=== PATIENT | male | born 1975 | race Caucasian/White ===

== ENCOUNTER 2025-01-05 18:42 | Inpatient (IN) | payer OTHER, MEDICAID ==
[~2025-01-05] VITALS: Ht 157.5 cm; Wt 88.5 kg
[2025-01-05] MEDS ORDERED: DOCUSATE SODIUM 100MG CAPSULE PO PRN (20:45)
[2025-01-05] MEDS ORDERED: SENNOSIDES 8.6MG TABLET PO PRN (20:45)
[2025-01-05] MEDS: LEVETIRACETAM 500MG PREMIX 100 ML IV SCH (21:39)
[2025-01-05] MEDS: LISINOPRIL 5MG TABLET PO SCH (21:39)
[2025-01-05] MEDS: ATORVASTATIN CALCIUM 40MG TABLET PO SCH (21:39)
[2025-01-05] MEDS: SODIUM CHLORIDE 0.9% 1,000 ML IV SCH (21:40)
[2025-01-05] MEDS: HYDRALAZINE HCL 25MG TABLET PO SCH (22:00)
[2025-01-05 22:37] VITALS: BP 113/70; PULSE 71; RESP 18; TEMP 36.6
[2025-01-05] MEDS: LORAZEPAM 1MG TABLET PO PRN (23:37)
[2025-01-06] VITALS: BP 116/70; PULSE 72; RESP 18; TEMP 36.4; O2SAT 95
[2025-01-06 04:00] VITALS: BP 116/70; PULSE 72; RESP 18; TEMP 36.4; O2SAT 95
[2025-01-06 07:33] LABS: BASOPHILS % 0.6 % (0.0-2.0); EOSINOPHILS % 2.1 % (0.0-5.0); HEMATOCRIT. 41.8 % (42.0-52.0); HEMOGLOBIN. 13.6 g/dL (14.0-18.0); LYMPHOCYTES % 19.2 % (20.0-50.0); MEAN CORPUSCULAR HEMOGLOBIN 27.7 pg (28.0-32.0); MEAN CORPUSCULAR HGB CONC 32.5 g/dL (31.0-37.0); MEAN CORPUSCULAR VOLUME 85.1 fL (80.0-94.0); MEAN PLATELET VOLUME 8.2 fl (7.4-10.4); MONOCYTES % 8.1 % (2.0-8.0); PLATELET 296 x1000/uL (130-400); RED BLOOD CELL COUNT 4.91 mill/uL (4.7-6.1); RED CELL DISTRIBUTION WIDTH 15.6 % (11.6-14.6); WHITE BLOOD COUNT 8.1 x1000/uL (4.5-11.0)
[2025-01-06 07:40] LABS: CHLORIDE 108 mEq/L (98-107); POTASSIUM 4.1 mEq/L (3.5-5.1); SODIUM 141 mEq/L (136-145)
[2025-01-06 08:00] VITALS: BP 122/73; PULSE 74; RESP 19; TEMP 36.2; O2SAT 96
[2025-01-06 08:30] LABS: UREA NITROGEN BLOOD 11 mg/dL (9-23)
[2025-01-06 08:32] LABS: BILIRUBIN TOTAL 0.4 mg/dL (0.1-1.0); PROTEIN TOTAL 6.8 g/dL (6.0-8.3)
[2025-01-06 08:40] LABS: CARBON DIOXIDE 25 mEq/L (21-32)
[2025-01-06 08:41] LABS: ALANINE AMINOTRANSFERASE 22 IU/L (10-49); ALBUMIN 3.8 g/dL (3.2-4.8); ASPARTATE AMINOTRANSFERASE 19 IU/L (<34); CALCIUM 9.1 mg/dL (8.7-10.4); CREATININE 0.5 mg/dL (0.6-1.3); GLUCOSE 84 mg/dL (70-105)
[2025-01-06] MEDS: PANTOPRAZOLE 40MG DR TABLET PO SCH (08:41)
[2025-01-06] MEDS: AMLODIPINE 10MG TABLET PO SCH (09:15)
[2025-01-06 20:00] VITALS: BP 115/68; PULSE 65; RESP 18; TEMP 36.4; O2SAT 96
[2025-01-07] MEDS: ACETAMINOPHEN 500MG TABLET PO SCH (00:06)
[2025-01-07 08:00] VITALS: BP 127/75; PULSE 72; RESP 19; TEMP 36.2; O2SAT 96
[2025-01-07 08:21] LABS: BASOPHILS % 0.6 % (0.0-2.0); EOSINOPHILS % 1.6 % (0.0-5.0); HEMATOCRIT. 40.8 % (42.0-52.0); HEMOGLOBIN. 13.4 g/dL (14.0-18.0); LYMPHOCYTES % 15.6 % (20.0-50.0); MEAN CORPUSCULAR HEMOGLOBIN 27.2 pg (28.0-32.0); MEAN CORPUSCULAR HGB CONC 32.8 g/dL (31.0-37.0); MEAN CORPUSCULAR VOLUME 82.9 fL (80.0-94.0); MEAN PLATELET VOLUME 8.5 fl (7.4-10.4); MONOCYTES % 6.1 % (2.0-8.0); NEUTROPHILS % 76.1 % (40.0-76.0); PLATELET 307 x1000/uL (130-400); RED BLOOD CELL COUNT 4.92 mill/uL (4.7-6.1); RED CELL DISTRIBUTION WIDTH 15.1 % (11.6-14.6); WHITE BLOOD COUNT 8.8 x1000/uL (4.5-11.0)
[2025-01-07 08:29] LABS: AMMONIA 25 uMol/L (<32)
[2025-01-07 08:36] LABS: CARBON DIOXIDE 26 mEq/L (21-32); CHLORIDE 108 mEq/L (98-107); SODIUM 140 mEq/L (136-145)
[2025-01-07 08:37] LABS: CALCIUM 8.6 mg/dL (8.7-10.4)
[2025-01-07 08:41] LABS: CREATININE 0.6 mg/dL (0.6-1.3); IRON 85 ug/dL (65-175)
[2025-01-07 08:42] LABS: GLUCOSE 83 mg/dL (70-105); UREA NITROGEN BLOOD 10 mg/dL (9-23)
[2025-01-07 08:43] LABS: ALANINE AMINOTRANSFERASE 31 IU/L (10-49)
[2025-01-07 08:44] LABS: ALBUMIN 3.8 g/dL (3.2-4.8); ASPARTATE AMINOTRANSFERASE 24 IU/L (<34); BILIRUBIN TOTAL 0.4 mg/dL (0.1-1.0); TOTAL IRON BINDING CAPACITY 311 ug/dl (250-425)
[2025-01-07 08:45] LABS: T4 FREE 1.16 ng/dL (0.89-1.76); THYROID STIMULATING HORMONE 2.29 uIU/mL (0.55-4.78)
[2025-01-07 08:46] LABS: FOLIC ACID (FOLATE) SERUM 12.87 ng/mL (>5.38); VITAMIN B12 SERUM 612 pg/mL (211-911)
[2025-01-07 20:00] VITALS: BP 112/69; PULSE 68; RESP 18; TEMP 36.4; O2SAT 98
[2025-01-08 08:00] VITALS: BP 128/81; PULSE 82; RESP 18; TEMP 36.7; O2SAT 97
[2025-01-08] MEDS: POLYVINYL ALCOHOL OPHTH DROPS 15ML BOTHEYE PRN (18:31)
[2025-01-08 20:00] VITALS: BP 122/61; PULSE 68; RESP 19; TEMP 36.7; O2SAT 96
[2025-01-09 08:00] VITALS: BP 111/62; PULSE 90; RESP 18; TEMP 36.8; O2SAT 98
[2025-01-09] MEDS: LEVETIRACETAM 500MG TABLET PO SCH (09:46)
[2025-01-09 14:00] VITALS: BP 104/72
[2025-01-09 20:00] VITALS: BP 121/74; PULSE 70; RESP 20; TEMP 36.6; O2SAT 98
[2025-01-10 08:00] VITALS: BP 119/80; PULSE 67; RESP 18; TEMP 36.9; O2SAT 97
[2025-01-10] MEDS: NICOTINE 14MG PATCH TD SCH (19:15)
[2025-01-10] MEDS: ERGOCALCIFEROL 50000UNITS CAPSULE PO SCH (19:15)
[2025-01-10 20:00] VITALS: BP 110/58; PULSE 65; RESP 18; TEMP 36.4; O2SAT 98
[2025-01-10] MEDS: LORAZEPAM 1MG TABLET PO PRN (22:23)
[2025-01-11 08:00] VITALS: BP 131/79; PULSE 69; RESP 16; TEMP 36.9; O2SAT 98
[2025-01-11 20:00] VITALS: BP 116/67; PULSE 62; RESP 19; TEMP 36.5; O2SAT 98
[2025-01-12 08:00] VITALS: BP 109/73; PULSE 80; RESP 20; TEMP 36.6; O2SAT 97
[2025-01-12 20:00] VITALS: BP 108/72; PULSE 71; RESP 18; TEMP 36.6; O2SAT 97
[2025-01-12] MEDS: ATORVASTATIN CALCIUM 20MG TABLET PO SCH (22:39)
[2025-01-13 08:00] VITALS: BP 127/82; PULSE 89; RESP 18; TEMP 36.5; O2SAT 100
[2025-01-13 20:00] VITALS: BP 114/70; PULSE 70; RESP 18; TEMP 36.6; O2SAT 97
[2025-01-14 08:00] VITALS: BP 94/70; PULSE 85; RESP 18; TEMP 36.2; O2SAT 96
[2025-01-14] MEDS: FOLIC ACID 1MG TABLET PO SCH (08:46)
[2025-01-14] MEDS: THIAMINE HCL 100MG TABLET PO SCH (08:46)
[2025-01-14 20:00] VITALS: BP 114/72; PULSE 81; RESP 20; TEMP 36.5; O2SAT 95
[2025-01-15 08:00] VITALS: BP 120/75; PULSE 72; RESP 20; TEMP 36.3; O2SAT 96
[2025-01-15 20:00] VITALS: BP 124/76; PULSE 68; RESP 19; TEMP 36.4; O2SAT 98
[2025-01-16 08:00] VITALS: BP 103/63; PULSE 70; RESP 18; TEMP 36.9; O2SAT 97
[2025-01-16 20:00] VITALS: BP 133/85; PULSE 71; RESP 18; TEMP 36.6; O2SAT 98
[2025-01-17 06:39] LABS: BASOPHILS % 0.4 % (0.0-2.0); EOSINOPHILS % 2.4 % (0.0-5.0); HEMOGLOBIN. 13.5 g/dL (14.0-18.0); LYMPHOCYTES % 19.7 % (20.0-50.0); MEAN CORPUSCULAR HEMOGLOBIN 28.5 pg (28.0-32.0); MEAN CORPUSCULAR HGB CONC 33.7 g/dL (31.0-37.0); MEAN CORPUSCULAR VOLUME 84.5 fL (80.0-94.0); MEAN PLATELET VOLUME 8.5 fl (7.4-10.4); MONOCYTES % 7.7 % (2.0-8.0); NEUTROPHILS % 69.8 % (40.0-76.0); PLATELET 278 x1000/uL (130-400); RED BLOOD CELL COUNT 4.74 mill/uL (4.7-6.1); RED CELL DISTRIBUTION WIDTH 15.5 % (11.6-14.6); WHITE BLOOD COUNT 9.3 x1000/uL (4.5-11.0)
[2025-01-17 06:48] LABS: CHLORIDE 104 mEq/L (98-107); POTASSIUM 3.9 mEq/L (3.5-5.1); SODIUM 140 mEq/L (136-145)
[2025-01-17 06:49] LABS: CALCIUM 9.5 mg/dL (8.7-10.4); CARBON DIOXIDE 28 mEq/L (21-32)
[2025-01-17 06:54] LABS: CREATININE 0.7 mg/dL (0.6-1.3); GLUCOSE 90 mg/dL (70-105); UREA NITROGEN BLOOD 12 mg/dL (9-23)
[2025-01-17 06:56] LABS: ALANINE AMINOTRANSFERASE 42 IU/L (10-49); ALBUMIN 3.8 g/dL (3.2-4.8); ASPARTATE AMINOTRANSFERASE 23 IU/L (<34)
[2025-01-17 06:57] LABS: BILIRUBIN TOTAL 0.4 mg/dL (0.1-1.0); PROTEIN TOTAL 6.7 g/dL (6.0-8.3)
[2025-01-17 08:00] VITALS: BP 132/74; PULSE 69; RESP 20; TEMP 36.3; O2SAT 97
[2025-01-17 20:00] VITALS: BP 109/63; PULSE 75; RESP 16; TEMP 36.7; O2SAT 98
[2025-01-18 08:00] VITALS: BP 124/68; PULSE 72; RESP 18; TEMP 36.3; O2SAT 100
[2025-01-18 20:00] VITALS: BP 114/67; PULSE 73; RESP 18; TEMP 36.6; O2SAT 97
[2025-01-19 08:00] VITALS: BP 121/82; PULSE 82; RESP 20; TEMP 36.3; O2SAT 98
[2025-01-19 20:00] VITALS: BP 111/74; PULSE 80; RESP 19; TEMP 36.8; O2SAT 94
[2025-01-20 08:00] VITALS: BP 99/59; PULSE 79; RESP 18; TEMP 36.6; O2SAT 97
[2025-01-20 20:00] VITALS: BP 101/58; PULSE 78; RESP 19; TEMP 36.7; O2SAT 96
[2025-01-20] MEDS: ATORVASTATIN CALCIUM 40MG TABLET PO SCH (21:28)
[2025-01-20 22:23] VITALS: BP 101/58; PULSE 78; RESP 20; TEMP 36.7; O2SAT 96
[2025-01-21 08:00] VITALS: BP 114/69; PULSE 64; RESP 18; TEMP 36.2; O2SAT 96
[2025-01-21 20:00] VITALS: BP 109/62; PULSE 75; RESP 20; TEMP 36.7; O2SAT 97
[2025-01-22 08:00] VITALS: BP 120/70; PULSE 83; RESP 18; TEMP 36.3; O2SAT 95
[2025-01-22 20:00] VITALS: BP 100/70; PULSE 88; RESP 20; TEMP 36.7; O2SAT 96
[2025-01-23 08:00] VITALS: BP 134/74; PULSE 72; RESP 18; TEMP 36.2; O2SAT 99
[2025-01-23] MEDS ORDERED: ACETAMINOPHEN 650MG/20.3ML UDC PO ONE (14:47)
[2025-01-23] MEDS ORDERED: ACETAMINOPHEN 325MG TABLET PO ONE (14:47)
[2025-01-23] MEDS: ACETAMINOPHEN 325MG TABLET ONE (14:47)
[2025-01-23 20:00] VITALS: BP 117/76; PULSE 72; RESP 18; TEMP 36.7; O2SAT 98
[2025-01-24 06:31] LABS: CHLORIDE 105 mEq/L (98-107); SODIUM 141 mEq/L (136-145)
[2025-01-24 06:32] LABS: CALCIUM 9.3 mg/dL (8.7-10.4); CARBON DIOXIDE 28 mEq/L (21-32)
[2025-01-24 06:37] LABS: CREATININE 0.7 mg/dL (0.6-1.3); GLUCOSE 88 mg/dL (70-105); UREA NITROGEN BLOOD 10 mg/dL (9-23)
[2025-01-24 06:53] LABS: BASOPHILS % 0.3 % (0.0-2.0); HEMOGLOBIN. 13.7 g/dL (14.0-18.0); MEAN CORPUSCULAR HEMOGLOBIN 28.5 pg (28.0-32.0); MEAN CORPUSCULAR HGB CONC 34.2 g/dL (31.0-37.0); MEAN CORPUSCULAR VOLUME 83.5 fL (80.0-94.0); MEAN PLATELET VOLUME 8.6 fl (7.4-10.4); MONOCYTES % 6.9 % (2.0-8.0); NEUTROPHILS % 65.8 % (40.0-76.0); PLATELET 250 x1000/uL (130-400); RED BLOOD CELL COUNT 4.79 mill/uL (4.7-6.1); RED CELL DISTRIBUTION WIDTH 15.4 % (11.6-14.6); WHITE BLOOD COUNT 6.9 x1000/uL (4.5-11.0)
[2025-01-24 08:00] VITALS: BP 111/70; PULSE 81; RESP 20; TEMP 36.3; O2SAT 97
[2025-01-24 20:00] VITALS: BP 91/57; PULSE 86; RESP 18; TEMP 36.9; O2SAT 96
[2025-01-25 08:00] VITALS: BP 119/78; PULSE 70; RESP 18; TEMP 37; O2SAT 99
[2025-01-25 20:00] VITALS: BP 102/67; PULSE 63; RESP 18; TEMP 36.7; O2SAT 99
[2025-01-26 08:00] VITALS: BP 124/81; PULSE 63; RESP 20; TEMP 36.2; O2SAT 98
[2025-01-26 20:00] VITALS: BP 122/81; PULSE 90; RESP 19; TEMP 36.2; O2SAT 99
[2025-01-27 08:00] VITALS: BP 100/63; PULSE 69; RESP 18; TEMP 36.2; O2SAT 95
[2025-01-27 20:00] VITALS: BP 118/75; PULSE 71; RESP 19; TEMP 36.6; O2SAT 97
[2025-01-28 08:00] VITALS: BP 132/81; PULSE 65; RESP 18; TEMP 36.2; O2SAT 96
[2025-01-28 20:00] VITALS: BP 97/58; PULSE 76; RESP 18; TEMP 36.6; O2SAT 97
[2025-01-29 08:00] VITALS: BP 125/68; PULSE 75; RESP 18; TEMP 36.7; O2SAT 98
[2025-01-29 20:00] VITALS: BP 100/63; PULSE 73; RESP 18; TEMP 36.6; O2SAT 95
[2025-01-30 08:00] VITALS: BP 112/64; PULSE 71; RESP 18; TEMP 36.1; O2SAT 97
[2025-01-30 20:00] VITALS: BP 122/79; PULSE 78; RESP 19; TEMP 36.6; O2SAT 98
[2025-01-31 08:00] VITALS: BP 133/61; PULSE 75; RESP 20; TEMP 36.1; O2SAT 97
[2025-01-31 20:00] VITALS: BP 119/65; PULSE 71; RESP 18; TEMP 36.6; O2SAT 96
[2025-02-01 08:00] VITALS: BP 109/61; PULSE 77; RESP 18; TEMP 36.6; O2SAT 97
[2025-02-01] MEDS ORDERED: IPRATROPIUM/ALBUTEROL 0.5-3(2.5)MG/3ML NEB HHN SCH (12:00)
[2025-02-01] MEDS ORDERED: PIPERACILLIN/TAZO 3.375G/50ML 50 ML IV SCH (14:00)
[2025-02-01 20:00] VITALS: BP 114/72; PULSE 67; RESP 18; TEMP 36.7; O2SAT 97
[2025-02-02 08:00] VITALS: BP 113/66; PULSE 83; RESP 20; TEMP 36.2; O2SAT 97
[2025-02-02 20:00] VITALS: BP 88/49; PULSE 65; RESP 18; TEMP 36.7; O2SAT 95
[2025-02-03] MEDS: HYDRALAZINE HCL 25MG TABLET PO SCH (05:48)
[2025-02-03 08:00] VITALS: BP 119/66; PULSE 61; RESP 19; TEMP 36.7; O2SAT 98
[2025-02-03 08:14] LABS: BASOPHILS % 0.2 % (0.0-2.0); EOSINOPHILS % 1.1 % (0.0-5.0); HEMATOCRIT. 41.5 % (42.0-52.0); LYMPHOCYTES % 18.1 % (20.0-50.0); MEAN CORPUSCULAR HEMOGLOBIN 28.4 pg (28.0-32.0); MEAN CORPUSCULAR HGB CONC 33.6 g/dL (31.0-37.0); MEAN CORPUSCULAR VOLUME 84.4 fL (80.0-94.0); MEAN PLATELET VOLUME 8.4 fl (7.4-10.4); MONOCYTES % 6.4 % (2.0-8.0); NEUTROPHILS % 74.2 % (40.0-76.0); PLATELET 227 x1000/uL (130-400); RED BLOOD CELL COUNT 4.93 mill/uL (4.7-6.1); WHITE BLOOD COUNT 7.3 x1000/uL (4.5-11.0)
[2025-02-03 08:17] LABS: CARBON DIOXIDE 28 mEq/L (21-32); CHLORIDE 104 mEq/L (98-107); POTASSIUM 3.8 mEq/L (3.5-5.1); SODIUM 140 mEq/L (136-145)
[2025-02-03 08:18] LABS: CALCIUM 9.1 mg/dL (8.7-10.4)
[2025-02-03 08:22] LABS: CREATININE 0.7 mg/dL (0.6-1.3); GLUCOSE 84 mg/dL (70-105)
[2025-02-03 08:23] LABS: UREA NITROGEN BLOOD 11 mg/dL (9-23)
[2025-02-03] MEDS: LISINOPRIL 5MG TABLET PO SCH (08:32)
[2025-02-03] MEDS ORDERED: DOCUSATE SODIUM 100MG CAPSULE PO PRN (09:00)
[2025-02-03 20:00] VITALS: BP 124/73; PULSE 75; RESP 19; TEMP 36.8; O2SAT 98
[2025-02-03] MEDS ORDERED: SENNOSIDES 8.6MG TABLET PO PRN (21:00)
[2025-02-03 21:20] VITALS: BP 91/53; PULSE 65
[2025-02-04 06:24] VITALS: BP 99/57; PULSE 61
[2025-02-04 08:00] VITALS: BP 110/60; PULSE 63; RESP 17; TEMP 36.7; O2SAT 99
[2025-02-04 13:38] VITALS: BP 118/73; PULSE 65
[2025-02-04 18:54] VITALS: BP 118/77; PULSE 71
[2025-02-04 20:00] VITALS: BP 121/55; PULSE 64; RESP 18; TEMP 36.7; O2SAT 96
[2025-02-05 08:00] VITALS: BP 125/70; PULSE 65; RESP 20; TEMP 36.6; O2SAT 99
[2025-02-05 13:42] VITALS: BP 117/76; PULSE 86
[2025-02-05 20:00] VITALS: BP 113/70; PULSE 73; RESP 18; TEMP 36.7; O2SAT 99
[2025-02-06 08:00] VITALS: BP 116/57; PULSE 61; RESP 20; TEMP 36.5; O2SAT 95
[2025-02-06 20:00] VITALS: BP 106/73; PULSE 65; RESP 19; TEMP 37.1; O2SAT 97
[2025-02-07 08:00] VITALS: BP 120/70; PULSE 60; RESP 20; TEMP 36.1; O2SAT 98
[2025-02-07 20:00] VITALS: BP 91/56; PULSE 65; RESP 18; TEMP 36.4; O2SAT 97
[2025-02-08 08:00] VITALS: BP 105/60; PULSE 72; RESP 17; TEMP 36.7; O2SAT 95
[2025-02-08 20:00] VITALS: BP 95/60; PULSE 91; RESP 18; TEMP 36.2; O2SAT 98
[2025-02-09 08:00] VITALS: BP 117/69; PULSE 70; RESP 19; TEMP 36.4; O2SAT 98
[2025-02-09 20:00] VITALS: BP 123/73; PULSE 78; RESP 18; TEMP 36.6; O2SAT 96
[2025-02-10 08:00] VITALS: BP 112/59; PULSE 75; RESP 20; TEMP 36.4; O2SAT 98
[2025-02-10 20:00] VITALS: BP 111/62; PULSE 67; RESP 20; TEMP 36.7; O2SAT 100
[2025-02-11 08:00] VITALS: BP 118/76; PULSE 101; RESP 20; TEMP 36.2; O2SAT 96
[2025-02-11 20:00] VITALS: BP 111/71; PULSE 101; PULSE 73; RESP 18; TEMP 36.6; O2SAT 96
[2025-02-12 08:00] VITALS: BP 109/79; PULSE 84; RESP 20; TEMP 36.2; O2SAT 97
[2025-02-12 14:18] VITALS: BP 110/70; PULSE 71
[2025-02-12 20:00] VITALS: BP 104/56; PULSE 64; RESP 18; TEMP 36.4; O2SAT 97
[2025-02-13 08:00] VITALS: BP 112/64; PULSE 67; RESP 20; TEMP 36.8; O2SAT 98
[2025-02-13 20:00] VITALS: BP 94/57; PULSE 64; RESP 18; TEMP 36.4; O2SAT 97
[2025-02-14 08:00] VITALS: BP 132/79; PULSE 75; RESP 19; TEMP 36.4; O2SAT 100
[2025-02-14 20:00] VITALS: BP 94/57; PULSE 64; RESP 18; TEMP 36.4; O2SAT 97
[2025-02-15 08:00] VITALS: BP 110/64; PULSE 65; RESP 18; TEMP 35.8; O2SAT 98
[2025-02-15 20:00] VITALS: BP 116/69; PULSE 70; RESP 18; TEMP 36.8; O2SAT 95
[2025-02-16 08:00] VITALS: BP 127/78; PULSE 71; RESP 20; TEMP 36.3; O2SAT 99
[2025-02-16 20:00] VITALS: BP 122/82; PULSE 72; RESP 18; TEMP 36.6; O2SAT 100
[2025-02-17 08:00] VITALS: BP 90/48; PULSE 71; RESP 20; TEMP 36.5; O2SAT 99
[2025-02-17 08:20] VITALS: BP 118/70; PULSE 78
[2025-02-17 09:11] VITALS: BP 118/70; PULSE 71; TEMP 97.7; O2SAT 99
[2025-02-17] MEDS ORDERED: AMLO10TA80 PO (09:12)
[2025-02-17] MEDS ORDERED: THIA100T72 PO (09:12)
[2025-02-17] MEDS ORDERED: PANT40TA51 PO (09:12)
[2025-02-17] MEDS ORDERED: LIP40 PO (09:12)
[2025-02-17] MEDS ORDERED: FOLI-43 PO (09:12)
[2025-02-17] MEDS ORDERED: LISI-186 PO (09:12)
[2025-02-17] MEDS ORDERED: HYDR25TA78 PO (09:12)
== END 2025-02-17 10:22 | disposition home or self-care (01) | DRG 44 ==
PROVIDERS: ADMIT Physical Medicine & Rehabilitation Spinal Cord Injury Medicine; ATTEND Family Medicine Adult Medicine
DX: I61.9 Nontraumatic intracerebral hemorrhage, unspecified (principal); G93.40 Encephalopathy, unspecified; G81.94 Hemiplegia, unspecified affecting left nondominant side; I11.9 Hypertensive heart disease without heart failure; R56.9 Unspecified convulsions; R47.01 Aphasia; R53.1 Weakness; R53.81 Other malaise; I16.1 Hypertensive emergency; R47.81 Slurred speech; R09.89 Other specified symptoms and signs involving the circulatory and respiratory systems; E66.812 Obesity, class 2; F17.200 Nicotine dependence, unspecified, uncomplicated; R13.10 Dysphagia, unspecified; R47.1 Dysarthria and anarthria; R29.810 Facial weakness; E78.5 Hyperlipidemia, unspecified; E55.9 Vitamin D deficiency, unspecified; Z91.81 History of falling; Z68.39 Body mass index [BMI] 39.0-39.9, adult
CPT/HCPCS: 36415; 71045; 80048; 80053; 80061; 82140; 82306; 82607; 82728; 82746; 83036; 83540; 83550; 84134; 84153; 84425; 84439; 84443; 85025; 92523; 92610; 93970; 97110; 97112; 97116; 97150; 97162; 97166; 97530; 97535; 97542; A6449; J1953; J7030; L1830

== ENCOUNTER 2025-02-21 21:46 | Emergency (ER) | payer MEDICAID ==
[~2025-02-21] VITALS: Ht 167.6 cm; Wt 82.0 kg
[~2025-02-21 21:46] MED LIST: AMLO10TA80 PO; FOLI-43 PO; HYDR25TA78 PO; LIP40 PO; LISI-186 PO; PANT40TA51 PO; THIA100T72 PO
[2025-02-21 22:09] VITALS: O2SAT 98
[2025-02-21 22:10] VITALS: TEMP 36.9
[2025-02-21 23:50] LABS: BASOPHILS % 0.3 % (0.0-2.0); EOSINOPHILS % 1.4 % (0.0-5.0); HEMATOCRIT. 38.6 % (42.0-52.0); HEMOGLOBIN. 13.1 g/dL (14.0-18.0); LYMPHOCYTES % 19.8 % (20.0-50.0); MEAN CORPUSCULAR VOLUME 85.2 fL (80.0-94.0); MEAN PLATELET VOLUME 8.4 fl (7.4-10.4); MONOCYTES % 6.7 % (2.0-8.0); NEUTROPHILS % 71.8 % (40.0-76.0); PLATELET 224 x1000/uL (130-400); RED BLOOD CELL COUNT 4.53 mill/uL (4.7-6.1); RED CELL DISTRIBUTION WIDTH 14.9 % (11.6-14.6); WHITE BLOOD COUNT 9.3 x1000/uL (4.5-11.0)
[2025-02-21 23:55] LABS: CHLORIDE 107 mEq/L (98-107); POTASSIUM 3.7 mEq/L (3.5-5.1); SODIUM 140 mEq/L (136-145)
[2025-02-21 23:56] LABS: CALCIUM 9.1 mg/dL (8.7-10.4); CARBON DIOXIDE 28 mEq/L (21-32)
[2025-02-21 23:57] LABS: PARTIAL THROMBOPLASTIN TIME 25.5 sec (23.4-31.0); PROTHROMBIN TIME 10.3 sec (9.6-11.0)
[2025-02-22 00:01] LABS: CREATININE 0.7 mg/dL (0.6-1.3); GLUCOSE 99 mg/dL (70-105); UREA NITROGEN BLOOD 11 mg/dL (9-23)
[2025-02-22 00:02] LABS: ETHANOL BLOOD < 10 mg/dL (<10); TROPONIN I HIGH SENSITIVITY 4 ng/L (3.0-53)
[2025-02-22 00:33] LABS: *AMPHETAMINES SCREEN URINE NEGATIVE (NEGATIVE); *BARBITURATES SCREEN URINE NEGATIVE (NEGATIVE); *BENZODIAZEPINES SCREEN URINE NEGATIVE (NEGATIVE); *COCAINE SCREEN URINE NEGATIVE (NEGATIVE); CANNABINOID URINE SCREEN NEGATIVE (NEGATIVE); ECSTASY MDMA SCREEN URINE NEGATIVE (NEGATIVE); METHADONE URINE SCREEN NEGATIVE (NEGATIVE); OPIATES URINE SCREEN NEGATIVE (NEGATIVE); PHENCYCLIDINE URINE SCREEN NEGATIVE (NEGATIVE)
[2025-02-22 01:13] VITALS: BP 125/80; PULSE 70; RESP 12; O2SAT 96
== END 2025-02-22 01:20 | disposition home or self-care (01) ==
LOC: ER 21:46
DX: R60.0 Localized edema (principal); I10 Essential (primary) hypertension; Z86.73 Personal history of transient ischemic attack (TIA), and cerebral infarction without residual deficits; Z79.899 Other long term (current) drug therapy
CPT/HCPCS: 36415; 71045; 80048; 80305; 80320; 83880; 84484; 85025; 93005; 93971; 99285; G0480